=== PATIENT | male | born 1975 | race Caucasian/White ===

== ENCOUNTER 2018-10-29 18:54 | Emergency (ER) | payer BC ==
[2018-10-29] MEDS ORDERED: HYDROmorphone 1 MG/ML Syringe IVPUSH ONE (19:09)
[2018-10-29] MEDS ORDERED: Metoclopramide 10 MG/2 ML SDV IVPUSH ONE (19:10)
[2018-10-29] MEDS ORDERED: Sodium Chloride 0.9% 1,000 ML IV SCH (19:15)
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
[2018-10-29] MEDS ORDERED: Iopamidol 612 MG/ML 100 ML Bottle IVPUSH ONE (19:40)
[2018-10-29] MEDS ORDERED: Sodium Chloride 0.9% 10 ML Syringe FLUSH ONE (19:40)
[2018-10-29 20:18] VITALS: BP 123/84
--- NOTE | 2018-10-29 20:32 | CT ---
CT cervical spine Technique: Multiple axial sections were obtained from above C1 inferiorly through the top of T2. Reconstructed sagittal and coronal images were obtained. Findings: Slight disc space narrowing is noted at C3-C4 and C4-C5 as well as C5-C6. Mild anterior disc space narrowing is noted at C2-C3. Scattered anterior osteophytes are noted at C3-C4 through C5-C6. Minimal right-sided neural foraminal stenosis is noted at C5-C6. Other neural foramina are patent. Incomplete fusion is seen within the posterior elements involving the spinous process at C7 and T1 which is a normal variant. No acute fracture is seen. No abnormal subluxation is seen. Impression: 1. Slight degenerative change. Incidental congenital finding. 2. No acute fracture or abnormal subluxation is seen. Diagnostic code #2
--- NOTE | 2018-10-29 20:32 | CT ---
CT chest Technique: Multiple axial sections through the chest were obtained. Intravenous contrast was utilized. Comparison: No prior chest CT. Findings: Mediastinum and hilar regions show no adenopathy. Opacified vessels appear within normal limits. No pericardial thickening is seen. Slight pulsation artifact is noted within the ascending aorta. Lungs are clear. No pulmonary contusion is seen. No pleural effusions are seen. No pneumothorax is seen. Bone window settings were reviewed which shows no discrete osseous abnormality. Reconstructed sagittal images shows no sternal fracture. Impression: 1. Nothing acute is appreciated on CT study of the chest. Diagnostic code #1 CT abdomen and pelvis Comparison: Previous CT abdomen and pelvis exam of 03/15/16. Technique: Multiple axial sections were obtained from above the dome of the diaphragm inferiorly through the pubic symphysis. Intravenous contrast was utilized. No oral contrast was given. Delayed images were obtained through the bladder. Artifact is noted within the upper abdomen due to patient's arms not being elevated. Findings: Liver shows no discrete abnormality. Low density area is noted next to the ligamentum teres fissure most likely due to small amount of normal fat. Spleen appears within normal limits. Adrenal glands show no nodule. Pancreas shows no discrete abnormality. Surgical clips are seen from prior cholecystectomy. Kidneys show symmetric contrast enhancement without evidence of injury. Aorta shows no aneurysm. Several retroperitoneal lymph nodes are seen which are slightly prominent in size. No pelvic mass or adenopathy is seen. No free fluid or inflammatory change is seen. Delayed images shows contrast within the distal ureters and within the bladder. No contrast extravasation is seen. Bone window settings were reviewed which shows no discrete osseous abnormality. Impression: 1. Several slightly prominent retroperitoneal lymph nodes which are minimally increased in size and number from previous CT exam. This is most likely incidental although recommend repeat CT abdomen exam in 6 months to confirm stability. 2. Nothing acute is appreciated on CT study of the abdomen and pelvis. Diagnostic code #9
--- NOTE | 2018-10-29 20:36 | CT ---
CT thoracic spine Technique: Multiple axial sections were obtained through the thoracic spine. Reconstructed coronal and sagittal images were reviewed. Comparison: No prior thoracic spine imaging. Findings: Bifid spinous processes are again noted of C7 and T1 which is a normal variant. No fracture is seen. No discrete disc herniation is seen. No bony central or bony neural foraminal stenosis is seen. No abnormal subluxation seen on the reconstructed sagittal images. Several detached bony densities are seen off the tip of the spinous processes within the upper thoracic spine which are old. Impression: 1. Incidental findings. Nothing acute is seen on CT study of the thoracic spine. Diagnostic code #2
--- NOTE | 2018-10-30 09:39 | CR ---
Left forearm: Two views of the left forearm were obtained. Comparison: No prior forearm study. Positioning slightly less than optimal with no good AP projection. Within this limitation, no discrete fracture or other abnormality is appreciated. Impression: 1. Less than optimal positioning. Within this limitation, no abnormality is appreciated on left forearm exam. Diagnostic code #1
--- NOTE | 2018-10-30 09:39 | CR ---
Left humerus: Two views of the left humerus were obtained. Comparison: No prior humerus exam. No fracture or other bony abnormality is seen. Impression: 1. Unremarkable two-view left humerus study. Diagnostic code #1
--- NOTE | 2018-10-30 09:39 | CR ---
Left wrist: Four views of left wrist were obtained. Additional navicular view also was obtained. Joint spaces are maintained. No fracture, dislocation or other bony abnormality is seen. Impression: 1. No abnormality is identified on left wrist exam. Diagnostic code #1
== END 2018-10-29 21:05 | disposition home or self-care (01) ==
LOC: JD.ED 18:54
DX: S16.1XXA Strain of muscle, fascia and tendon at neck level, initial encounter (principal); S63.502A Unspecified sprain of left wrist, initial encounter; S40.012A Contusion of left shoulder, initial encounter; V49.49XA Driver injured in collision with other motor vehicles in traffic accident, initial encounter
CPT/HCPCS: 36415; 71260; 72125; 72128; 73060; 73090; 73110; 74177; 80053; 82150; 84484; 85007; 85027; 85610; 85730; 96361; 96374; 96375; 99285; J1170; J2765; J7040; Q9967; 99284

== ENCOUNTER 2023-09-21 14:20 | Emergency (ER) | payer BC, OTHER ==
[2023-09-21] MEDS ORDERED: Sodium Chloride 0.9% 10 ML Syringe FLUSH PRN (14:38)
[2023-09-21 14:53] LABS: BASOPHILS PERCENT AUTO 0.7 % (0.0-1.0); EOSINOPHILS ABSOLUTE AUTO 0.1 K/mm3 (0.0-0.4); EOSINOPHILS PERCENT AUTO 2.4 % (0.0-6.0); HEMATOCRIT 49.9 % (42.0-52.0); HEMOGLOBIN 16.5 gm/dl (14.0-18.0); IMMATURE GRAN ABSOLUTE AUTO 0.02 K/mm3 (0.00-0.05); IMMATURE GRAN PERCENT AUTO 0.3 % (0.0-0.4); LYMPHOCYTES ABSOLUTE AUTO 1.5 K/mm3 (1.0-4.8); LYMPHOCYTES PERCENT AUTO 26.4 % (24.0-44.0); MEAN CORPUSCULAR HEMOGLOBIN 28.1 pg (28.0-32.0); MEAN CORPUSCULAR HGB CONC 33.1 g/dl (32.0-36.0); MEAN CORPUSCULAR VOLUME 84.9 fl (83.0-99.0); MEAN PLATELET VOLUME 9.2 fl (9.4-12.4); MONOCYTES ABSOLUTE AUTO 0.6 K/mm3 (0.0-0.8); MONOCYTES PERCENT AUTO 9.9 % (0.0-8.0); NEUTROPHILS ABSOLUTE AUTO 3.5 K/mm3 (1.8-7.7); NEUTROPHILS PERCENT AUTO 60.3 % (41.0-71.0); PLATELET COUNT,PLT 211 K/mm3 (150-400); RED BLOOD CELL COUNT 5.88 M/mm3 (4.52-5.90); WHITE BLOOD CELL COUNT,WBC 5.76 K/mm3 (3.9-11.3)
[2023-09-21 15:12] LABS: A/G RATIO 1.3 (1-2); ALBUMIN 4.3 g/dl (3.4-5.0); ANION GAP 15.9 (5-15); BILIRUBIN TOTAL 0.8 mg/dL (0.2-1.0); CALCIUM 9.6 mg/dL (8.5-10.1); EST CRCL DRUG DOSING (CG) 80.64 mL/min; POTASSIUM,K 3.9 mEq/L (3.5-5.1); PROTEIN TOTAL,TP 7.6 g/dl (6.4-8.2)
[2023-09-21] MEDS ORDERED: Ketorolac 30 MG/ML SDV IVPUSH ONE (15:25)
[2023-09-21] MEDS ORDERED: Orphenadrine 60 MG/2 ML Inj IV ONE (15:25)
[2023-09-21 15:33] LABS: APPEARANCE,URINE CLEAR (Clear); BILIRUBIN,URINE NEGATIVE (Negative); COLOR,URINE YELLOW (Yellow); GLUCOSE,URINE NEGATIVE (Negative); KETONES,URINE NEGATIVE (Negative); LEUKOCYTE ESTERASE,URINE NEGATIVE (Negative); NITRITE,URINE NEGATIVE (Negative); OCCULT BLOOD,URINE NEGATIVE (Negative); PROTEIN,URINE NEGATIVE (Negative); UROBILINOGEN,URINE 0.2 (0.2-1.0)
[2023-09-21 15:55] LABS: RBC,URINE 0-5 /hpf (0-5); WBC,URINE 0-5 /hpf (0-5)
[2023-09-21 15:56] LABS: BACTERIA,URINE FEW /hpf (FEW); MUCUS,URINE FEW /hpf (FEW); SQUAMOUS EPITHELIAL CELLS,UR 0-5 /hpf (0-5)
[2023-09-21 16:52] VITALS: BP 113/72; PULSE 57
== END 2023-09-21 16:48 | disposition home or self-care (01) ==
LOC: JD.ED 14:20
DX: S29.012A Strain of muscle and tendon of back wall of thorax, initial encounter (principal); R07.89 Other chest pain; Z88.0 Allergy status to penicillin; Z88.5 Allergy status to narcotic agent; Z88.8 Allergy status to other drugs, medicaments and biological substances
CPT/HCPCS: 36415; 71046; 80053; 81001; 83735; 84484; 85025; 93005; 96374; 96375; 99285; J1885; J2360; J3490; 93010; 99284

== ENCOUNTER 2023-09-23 15:23 | Emergency (ER) | payer OTHER ==
[2023-09-23] MEDS ORDERED: Sodium Chloride 0.9% 10 ML Syringe FLUSH PRN (15:40)
[2023-09-23] MEDS ORDERED: Alum Hydrox/Mag Hydrox/Simeth 30 ML, Lidocaine 2% 15 ML PO ONE ×2 (15:44)
[2023-09-23] MEDS ORDERED: Metoclopramide 10 MG/2 ML SDV IVPUSH ONE (15:45)
[2023-09-23 16:09] LABS: BASOPHILS PERCENT AUTO 0.3 % (0.0-1.0); EOSINOPHILS ABSOLUTE AUTO 0.1 K/mm3 (0.0-0.4); EOSINOPHILS PERCENT AUTO 0.8 % (0.0-6.0); HEMATOCRIT 45.8 % (42.0-52.0); HEMOGLOBIN 15.6 gm/dl (14.0-18.0); IMMATURE GRAN ABSOLUTE AUTO 0.02 K/mm3 (0.00-0.05); IMMATURE GRAN PERCENT AUTO 0.3 % (0.0-0.4); LYMPHOCYTES ABSOLUTE AUTO 0.7 K/mm3 (1.0-4.8); LYMPHOCYTES PERCENT AUTO 10.6 % (24.0-44.0); MEAN CORPUSCULAR HEMOGLOBIN 29.8 pg (28.0-32.0); MEAN CORPUSCULAR HGB CONC 34.1 g/dl (32.0-36.0); MEAN CORPUSCULAR VOLUME 87.4 fl (83.0-99.0); MEAN PLATELET VOLUME 9.3 fl (9.4-12.4); MONOCYTES ABSOLUTE AUTO 0.4 K/mm3 (0.0-0.8); MONOCYTES PERCENT AUTO 6.4 % (0.0-8.0); NEUTROPHILS ABSOLUTE AUTO 5.1 K/mm3 (1.8-7.7); NEUTROPHILS PERCENT AUTO 81.6 % (41.0-71.0); PLATELET COUNT,PLT 175 K/mm3 (150-400); RED BLOOD CELL COUNT 5.24 M/mm3 (4.52-5.90); WHITE BLOOD CELL COUNT,WBC 6.25 K/mm3 (3.9-11.3)
[2023-09-23 16:40] LABS: A/G RATIO 1.3 (1-2); ALBUMIN 3.7 g/dl (3.4-5.0); BILIRUBIN TOTAL 1.2 mg/dL (0.2-1.0); CALCIUM 9.1 mg/dL (8.5-10.1); EST CRCL DRUG DOSING (CG) 83.54 mL/min; MAGNESIUM 1.9 mg/dL (1.8-2.4); PROTEIN TOTAL,TP 6.6 g/dl (6.4-8.2)
[2023-09-23] MEDS ORDERED: Iopamidol 755 Mg/ML 100 ML Bottle IVPUSH ONE (16:47)
[2023-09-23] MEDS ORDERED: Sodium Chloride 0.9% 100 ML IV SCH (17:00)
[2023-09-23 18:15] VITALS: BP 136/81; PULSE 71
== END 2023-09-23 18:13 | disposition home or self-care (01) ==
LOC: JD.ED 15:23
DX: K80.50 Calculus of bile duct without cholangitis or cholecystitis without obstruction (principal); E66.9 Obesity, unspecified; Z88.5 Allergy status to narcotic agent; Z88.0 Allergy status to penicillin; Z88.8 Allergy status to other drugs, medicaments and biological substances; Z68.30 Body mass index [BMI] 30.0-30.9, adult
CPT/HCPCS: 36415; 74175; 80053; 83735; 84484; 85025; 93005; 96374; 99285; A9270; J2765; J3490; Q9967; 93010; 99284